=== PATIENT | female | born 1935 | race Caucasian/White ===

== ENCOUNTER 2016-08-15 10:03 | Day surgery (SDC) | payer MEDICARE, OTHER ==
[2016-08-15] VITALS (8 sets, daily range): BP systolic 106–213; BP diastolic 50–100; PULSE 58–67; TEMP 97.3–98.2
[~2016-08-15] VITALS: Ht 172.7 cm; Wt 78.0 kg
[~2016-08-15 10:03] MED LIST: FERROUS SU325 MG/TAB PO; FOLIC ACID PO; HCTZ 25MG25 MG PO; LISINOPRIL10 MG PO; LORTAB 5/500 501 TAB PO; NIACIN250 MG PO; VITAMIN C BUFF500 MG PO; VITAMIN C500 MG PO; VITAMIN D PO
[2016-08-15 11:23] LABS: MEAN CELL VOLUME 98 fl (80.0-100.0); MEAN CORPUSCULAR HEMOGLOBIN 32 pg (27.0-31.0); MEAN CORPUSCULAR HGB CONC 33 g/dl (33.0-37.0); MEAN PLATELET VOLUME 8.6 fl (7.4-10.4); PLATELET COUNT 188 K/mm3 (130-400); RED BLOOD COUNT 3.73 M/mm3 (4.10-5.30); REDCELL DISTRIBUTION WIDTH-CV 12.9 % (11.5-14.5); WHITE BLOOD COUNT 6.7 K/mm3 (4.8-10.8)
[2016-08-15 11:30] LABS: HEMATOCRIT 36.5 % (37.0-47.0)
[2016-08-15 11:32] LABS: CALCIUM 9.4 mg/dL (8.4-10.2); CREATININE, serum 1.18 mg/dL (0.52-1.25); POTASSIUM 4.4 mmol/L (3.4-5.0)
[2016-08-15 11:34] LABS: INR 1.5 (0.8-3.0); PROTHROMBIN TIME 16.6 SECONDS (9.7-12.8)
[2016-08-15] MEDS ORDERED: NORCO 325 MG-101 TAB PO (11:57)
[2016-08-15] MEDS ORDERED: PRAVACHOL 20MG20 MG PO (11:59)
[2016-08-15] MEDS ORDERED: CORDARONE200 MG/TAB PO (11:59)
[2016-08-15] MEDS ORDERED: MASON NATURAL1200 MG PO (12:01)
[2016-08-15] MEDS ORDERED: VITAMIN D1000 IU PO (12:02)
[2016-08-15] MEDS ORDERED: COUMADIN 2MG2 MG/TAB PO (12:06)
[2016-08-16 03:38] VITALS: BP 125/64; PULSE 61; TEMP 97.9
[2016-08-16 07:33] LABS: BASO % 0.5 % (0.0-2.0); EOS # 0.3 (0.0-0.7); EOS % 3.6 % (0-4.0); GRAN # 6.7 (1.4-6.5); HEMATOCRIT 37.5 % (37.0-47.0); HEMOGLOBIN 12.4 g/dl (12.5-16.0); LYMPH # 0.6 (1.2-3.4); LYMPH % 7.3 % (20.0-51.0); MEAN CELL VOLUME 97 fl (80.0-100.0); MEAN CORPUSCULAR HEMOGLOBIN 32 pg (27.0-31.0); MEAN CORPUSCULAR HGB CONC 33 g/dl (33.0-37.0); MONO # 0.5 (0.1-0.6); MONO % 6.1 % (1.7-9.3); PLATELET COUNT 177 K/mm3 (130-400); RED BLOOD COUNT 3.85 M/mm3 (4.10-5.30); REDCELL DISTRIBUTION WIDTH-CV 12.8 % (11.5-14.5); WHITE BLOOD COUNT 8.2 K/mm3 (4.8-10.8)
[2016-08-16 07:38] VITALS: BP 124/60; PULSE 63; TEMP 98.1
[2016-08-16 07:45] LABS: CALCIUM 8.8 mg/dL (8.4-10.2); CREATININE, serum 0.96 mg/dL (0.52-1.25); POTASSIUM 4.2 mmol/L (3.4-5.0)
[2016-08-16] MEDS ORDERED: CEPHALEXIN500 M1 PO (10:03)
[2016-08-16] MEDS ORDERED: ZEBETA 5MG5 MG PO (10:04)
== END 2016-08-16 10:57 | disposition home or self-care (01) ==
LOC: EUO 10:03 → COL.RAD 10:30 → EUO 10:30 → MEDICAL 15:04 → EUO 08-16 10:57
PROVIDERS: Internal Medicine Cardiovascular Disease
DX: I44.1 Atrioventricular block, second degree (principal); I48.0 Paroxysmal atrial fibrillation; Z79.01 Long term (current) use of anticoagulants; Z79.899 Other long term (current) drug therapy
CPT/HCPCS: OP; C1785; C1894; C1898; J0690; J2250; J3010; J7030; Q9967

== ENCOUNTER 2017-05-01 10:29 | Day surgery (SDC) | payer MEDICARE ==
[~2017-05-01] VITALS: Ht 170.2 cm; Wt 76.6 kg
[2017-05-01] VITALS (7 sets, daily range): BP systolic 113–154; BP diastolic 49–69; PULSE 59–84; TEMP 98.1–98.3
[~2017-05-01 10:29] MED LIST changes: +CEPHALEXIN500 M1 PO; +CORDARONE200 MG/TAB PO; +COUMADIN 2MG2 MG/TAB PO; +MASON NATURAL1200 MG PO; +NORCO 325 MG-101 TAB PO; +PRAVACHOL 20MG20 MG PO; +VITAMIN D1000 IU PO; +ZEBETA 5MG5 MG PO
[2017-05-01 11:20] LABS: PROTHROMBIN TIME 35.6 SECONDS (9.7-12.8)
== END 2017-05-01 17:50 | disposition home or self-care (01) ==
LOC: SDCO 10:29
PROVIDERS: Nurse Anesthetist, Certified Registered
DX: S52.501A Unspecified fracture of the lower end of right radius, initial encounter for closed fracture (principal); M19.90 Unspecified osteoarthritis, unspecified site; I48.91 Unspecified atrial fibrillation; I10 Essential (primary) hypertension; Z95.0 Presence of cardiac pacemaker; Z96.643 Presence of artificial hip joint, bilateral; Z82.49 Family history of ischemic heart disease and other diseases of the circulatory system; Z79.01 Long term (current) use of anticoagulants; Z82.3 Family history of stroke
CPT/HCPCS: C1713; J0690; J1100; J1170; J2405; J2704; J3010; J7120